=== PATIENT | male | born 1955 | race Caucasian/White ===

== ENCOUNTER 2017-03-10 12:29 | Day surgery (SDC) | payer OTHER ==
[2017-03-09 14:26] VITALS: BMI 30.1
[2017-03-10 14:18] VITALS: PULSE 64
[2017-03-10 14:49] VITALS: BP 124/78; TEMP 98
--- NOTE | 2017-03-14 15:41 | PATH ---
Surgical Pathology Report Patient Name: BRIAN MILES [facility]. Rec. #: [id number] /Age/Gender: 1955 (Age: 61) / M Account: [id number] Location: [facility]-ENDOSCOPY Taken: 03/10/2017 Received: 03/11/2017 Reported: 03/14/2017 Physicians: Viral Medrano M.D. Specimen(s) Received A: BX GASTRIC CARDIA GASTRITIS B: BX ESOPHAGUS C: BX RECTUM Clinical History GERD Gastritis, hiatal hernia, grade 2 hemorrhoids Final Diagnosis A. GASTRIC CARDIA, GASTRITIS, BIOPSY: MILD CHRONIC GASTRITIS. IMMUNOSTAIN IS NEGATIVE FOR H. PYLORI ORGANISMS. B. DISTAL ESOPHAGUS, BIOPSY: MILDLY HYPERPLASTIC ESOPHAGEAL (SQUAMOUS) MUCOSA WITH RARE INTRAEPITHELIAL EOSINOPHILS, CONSISTENT WITH REFLUX ESOPHAGITIS. NO COLUMNAR EPITHELIUM/INTESTINAL METAPLASIA IS IDENTIFIED. C. RECTUM, BIOPSY: COLONIC/RECTAL MUCOSA SHOWING BENIGN/REACTIVE LYMPHOID AGGREGATE. Electronically Signed Sangeeta Dover M.D. Gross Description A. Received in formalin, labeled "biopsy gastric cardia gastritis rule out H. Pylori" are 2 weeks, irregular portions of soft tissue measuring 0.1-0.2 cm. in greatest dimension. The specimens are submitted in toto in one cassette. B. Received in formalin, labeled "biopsy distal esophagus" are 2 pieces of abbott tissue measuring 0.3 cm. in greatest dimension. The specimens are submitted in toto in one cassette. C. Received in formalin, labeled "biopsy rectum" is a weeks, irregular portion of soft tissue measuring 0.2 cm. in greatest dimension. The specimen is submitted in toto in one cassette. [facility]/03/11/2017 [facility]/03/11/2017
== END 2017-03-10 14:49 | disposition home or self-care (01) ==
LOC: JASU-ENDO 12:29
PROVIDERS: ATTEND Internal Medicine Gastroenterology
PROC: 0DB68ZX Excision of Stomach, Via Natural or Artificial Opening Endoscopic, Diagnostic (ICD-10-PCS; 2017-03-10)
PROC: 0DBP8ZX Excision of Rectum, Via Natural or Artificial Opening Endoscopic, Diagnostic (ICD-10-PCS; principal; 2017-03-10 14:30)
DX: K64.2 Third degree hemorrhoids (principal); K29.70 Gastritis, unspecified, without bleeding; K44.9 Diaphragmatic hernia without obstruction or gangrene
CPT/HCPCS: 88305-TC; 88342-TC

== ENCOUNTER 2017-06-27 09:32 | Day surgery (SDC) | payer OTHER ==
[2017-06-24 08:40] VITALS: BMI 28.5
[2017-06-27] MEDS ORDERED: oxyCODONE HCL 5 MG TABLET PO PRN ×4 (11:46→13:00)
[2017-06-27] MEDS ORDERED: ONDANSETRON 4 MG/2 ML VIAL IVPUSH PRN (11:46)
[2017-06-27] MEDS ORDERED: LACTATED RINGERS SOLUTION 1,000 ML IV SCH (12:00)
--- NOTE | 2017-06-27 13:01 | OP ---
Operative Note - Note: Operative Date: 06/27/17 Pre-Operative Diagnosis: BPH with urinary obstruction Operation: cysto/Bipolar transurethral vaporization of prostate Findings: trilobar hyperplasia Post-Operative Diagnosis: Same as Pre-op Surgeon: Conrado Matos Anesthesia: Spinal Estimated Blood Loss (mls): 25
[2017-06-27] MEDS: ELECTROLYTE-148 SOLN 1,000 ML IV SCH (16:45)
--- NOTE | 2017-06-27 19:58 | OP ---
DATE OF OPERATION: 06/27/2017 PREOPERATIVE DIAGNOSES: Benign prostatic hypertrophy with urinary obstructive symptoms and weak urinary stream. POSTOPERATIVE DIAGNOSES: Benign prostatic hypertrophy with urinary obstructive symptoms and weak urinary stream. PROCEDURE: Cystoscopy, transurethral bipolar vaporization of the prostate. SURGEON: Conrado Matos MD INDICATION: Patient is a 61-year-old male with obstructive uropathy. After reviewing treatment options, elected to undergo bipolar TURVP, understood the risks of bleeding, infection, impotence, incontinence, stricture formation, potential need for additional procedure, potential injury to adjacent organs. DESCRIPTION OF PROCEDURE: After informed consent was obtained, patient taken to the OR, placed supine on the table. After cardiac monitoring administered, spinal anesthetic was then given. He was prepped and draped in the dorsal lithotomy position. He was given 500 mg of IV Levaquin. At this point, the 26-sheath resectoscope with visual obturator was inserted into the urethra without difficulty. Anterior urethra was normal. The prostatic urethra was 5 cm and visually occlusive with trilobar hyperplasia. With the resectoscope pushed as far into the bladder as possible, only the tip of the resectoscope could be actually seen into the bladder, indicating a very long prostatic urethra. Also note the meatus was a bit narrow and had to be dilated with sounds prior to insertion of the resectoscope. At this point, using the button electrode, attention was first turned to the median bar. This was vaporized approximately 50% of its size until an open channel then could be seen into the bladder. Lateral tissue was then vaporized as well on the patient's left side until a wide-open channel was created. There was no resection within 1 cm of the verumontanum or vaporization within 1 cm of the verumontanum to minimize the chance of incontinence. With the resectoscope situated at the verumontanum, an open channel was seen looking into the bladder, which was not at all visible prior to any portion of the procedure. At this point then, when adequate-enough channel was created, all bleeding sites were fulgurated, and the resectoscope was then removed. A 24-[place] 3-way Pineda was then placed to straight drainage, and CBI was started. On slow CBI, the urine was pink. Patient had tolerated the procedure well, was awoken from anesthesia and transferred to recovery room in stable condition. There were no complications. Estimated blood loss was 25 mL. [facility] PRO/[id number]
[2017-06-28 06:14] VITALS: TEMP 98.5
[2017-06-28] MEDS: ELECTROLYTE-148 SOLN 1,000 ML IV SCH (06:33)
--- NOTE | 2017-06-28 08:35 | PN ---
Progress Note (short form) - Note Progress Note: urine light pink on slow CBI Abd soft will d/c CBI and d/c home with [facility]
[2017-06-28 11:52] VITALS: BP 140/87; PULSE 80
== END 2017-06-28 11:37 | disposition home or self-care (01) ==
LOC: JASU-SURG 09:32 → JASUSAT 09:32 → J8W 17:34 → JASUSAT 06-28 11:37
PROVIDERS: ATTEND Urology
PROC: 0VT08ZZ Resection of Prostate, Via Natural or Artificial Opening Endoscopic (ICD-10-PCS; principal; 2017-06-27 11:00)
DX: N40.1 Benign prostatic hyperplasia with lower urinary tract symptoms (principal); R39.12 Poor urinary stream

== ENCOUNTER 2021-04-14 15:13 | Emergency (ER) | payer OTHER ==
[2021-04-14 15:43] VITALS: PULSE 79; BMI 27.3
[2021-04-14] MEDS ORDERED: CASIRIVIMAB/IMDEVIMAB 10 ML in SODIUM CHLORIDE 100 ML IVPB ONE (16:05)
[2021-04-14 17:31] LABS: BASO % 0.9 % (0-2.0); EOS % 0.1 % (0-4.5); HEMATOCRIT 42.5 % (35.4-49); HEMOGLOBIN 14.3 GM/dL (11.7-16.9); LYMPH % 20.4 % (8-40); MCH 26.6 pg (25.7-33.7); MCHC 33.5 g/dl (32.0-35.9); MEAN CELL VOLUME 79.3 fl (80-96); MEAN PLT VOLUME 9.1 fl (7.5-11.1); MONO % 17.2 % (3.8-10.2); NEUT % 61.4 % (42.8-82.8); PLATELET COUNT 152 10^3/uL (134-434); RBC 5.36 M/mm3 (4.00-5.60); RDW 14.1 % (11.9-15.9); WHITE BLOOD COUNT 6.1 K/mm3 (4.0-10.0)
[2021-04-14 17:51] LABS: CALCIUM 9.1 mg/dL (8.5-10.1)
[2021-04-14 17:52] LABS: ALBUMIN 3.7 g/dl (3.4-5.0); BLOOD UREA NITROGEN 14.4 mg/dL (7-18)
[2021-04-14 17:55] LABS: CREATININE 1.2 mg/dL (0.55-1.3)
[2021-04-14 17:57] LABS: BILIRUBIN,TOTAL 0.6 mg/dL (0.2-1); TOT PROT 7.3 g/dl (6.4-8.2)
[2021-04-14 20:02] VITALS: BP 105/72; TEMP 97.9
== END 2021-04-14 18:58 | disposition home or self-care (01) ==
LOC: JCOVINFU 15:13
DX: U07.1 COVID-19 (principal)
CPT/HCPCS: 36415; 80053; 85025; 99284-25; Q0240

== ENCOUNTER 2024-02-04 08:22 | Emergency (ER) | payer OTHER ==
[2024-02-04 08:36] VITALS: BP 163/76; PULSE 51; RESP 20; TEMP 98.1; BMI 29.8
[2024-02-04] MEDS ORDERED: ONDANSETRON 4 MG/2 ML VIAL ONE (09:01)
[2024-02-04] MEDS ORDERED: KETOROLAC TROMETHAMINE 15 MG/ML VIAL ONE (09:01)
[2024-02-04] MEDS: KETOROLAC TROMETHAMINE 15 MG/ML VIAL IVPUSH ONE (09:15)
[2024-02-04] MEDS: ONDANSETRON 4 MG/2 ML VIAL IVPUSH ONE (09:16)
[2024-02-04 10:03] LABS: HEMATOCRIT 41.5 % (35.4-49); HEMOGLOBIN 13.1 G/dL (11.7-16.9); MCH 23.8 pg (25.7-33.7); MCHC 31.4 g/dl (32.0-35.9); MEAN CELL VOLUME 75.7 fl (80-96); MEAN PLT VOLUME 9.2 fl (7.5-11.1); PLATELET COUNT 181.8 10^3/uL (134-434); RBC 5.48 10^6/uL (4.00-5.60); RDW 18.1 % (11.9-15.9); WHITE BLOOD COUNT 6.4 10^3/uL (4.0-10.8)
[2024-02-04 10:12] LABS: ALBUMIN 4.4 g/dl (3.4-5.0); ALK PHOS 36 U/L (45-117); BILIRUBIN,TOTAL 0.5 mg/dl (0.2-1); CALCIUM 9.3 mg/dl (8.5-10.1); CO2 28 mmol/L (21-32); CREATININE 1.1 mg/dl (0.6-1.3); GLUCOSE,RANDOM 126 mg/dl (74-106); SGOT/AST 17 U/L (15-37); SGPT/ALT 18 U/L (7-52); TOT PROT 6.7 g/dl (6.4-8.2)
[2024-02-04 10:58] LABS: EPITHELIAL CELLS 0-5 /hpf
[2024-02-04 10:59] LABS: PLATELET ESTIMATE ADEQUATE
[2024-02-04 11:36] LABS: ANION GAP 9 mmol/L (4-13); CHLORIDE 102 mmol/L (98-107); POTASSIUM 4.5 mmol/L (3.5-5.1); SODIUM 139 mmol/L (136-145)
== END 2024-02-04 12:11 | disposition home or self-care (01) ==
LOC: FER 08:22
PROC: 3E0333Z Introduction of Anti-inflammatory into Peripheral Vein, Percutaneous Approach (ICD-10-PCS; principal; 2024-02-04)
PROC: 3E033GC Introduction of Other Therapeutic Substance into Peripheral Vein, Percutaneous Approach (ICD-10-PCS; 2024-02-04)
DX: M54.50 Low back pain, unspecified (principal); N13.2 Hydronephrosis with renal and ureteral calculous obstruction; R10.31 Right lower quadrant pain; R11.0 Nausea
CPT/HCPCS: 36415; 74178-TC; 80053; 81003; 81015; 85027; 86140; 93005; 99285-25; Q9967